=== PATIENT | female | born 1995 | race Caucasian/White ===

== ENCOUNTER 2019-01-16 10:19 | Outpatient (CLI) | payer OTHER ==
[~2019-01-16] VITALS: Ht 175.3 cm; Wt 136.0 kg
[2019-01-16] MEDS ORDERED: STUACAP PO (10:39)
[2019-01-16] MEDS ORDERED: MAPA500T2 PO (10:39)
[2019-01-16] MEDS ORDERED: ASPI81TA21 PO (10:40)
[2019-01-16] MEDS ORDERED: GNP250TA9 PO (10:41)
[2019-01-16 10:49] VITALS: BP 135/84
[2019-01-16] MEDS ORDERED: FIORICET TAB PO ONE (11:00)
[2019-01-16 11:07] VITALS: BP 122/67
--- NOTE | 2019-01-16 12:18 | IPNPDOC ---
Obstetrical Progress Note Date of Service Jan 16, 2019 Subjective 23yo at 34wks presents to clinic for c/o persistent COPE; Pt denies any other s/sx of Pre-E, including RUQ pain or visual disturbances. She reports +FM, denies LOF/VB/CTX. Pt states COPE is consistently a 5/10, in the alevism areas and behind her eyes. She was seen in the clinic on [id number] and started on magnesium therapy. Last night she took 1g of tylenol and 800mg of magnesium and COPE is still persistent. Pt's most recent Pre-E labs from are + for proteinuria (>350 in 24hr protein). These results were reviewed with pt yesterday in the clinic. Her is complicated by obesity, BMI 39 pre-. She is set up to start weekly APFTs next week, the 2x week starting at 36 weeks. Her repeat growth scan is scheduled for 36 week. Objective O: BP normotensive FHR 150s, moderate variability, + accels, no decels no CTX noted Pt provided 1x fioricet Vital Signs Date Time Temp Pulse Resp B/P (MAP) Pulse Ox O2 Delivery O2 Flow Rate FiO2 01/16/19 11:07 86 122/67 (85) 01/16/19 11:03 18 Assessment Heart Rate (FHR): 150 Variability: Moderate Accelerations: Positive Decelerations: None Heart Rate Tracing: Category I Tocometer Contractions: No Assessment and Plan Status: Reassuring Additional Comments A: 23yo at 34 weeks with persistent COPE of 5/10, most likely a migraine. Pt provided 1x fioricet and was able to rest with lights out; after 30 minutes, pain reduced to 2/10. 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
== END 2019-01-16 11:37 | disposition home or self-care (01) ==
LOC: M LDO 10:19
PROVIDERS: ATTEND Registered Nurse Maternal Newborn
DX: O99.89 Other specified diseases and conditions complicating pregnancy, childbirth and the puerperium (principal); Z3A.34 34 weeks gestation of pregnancy; R51 Headache
CPT/HCPCS: 59025; G0378; G0463

== ENCOUNTER 2019-02-20 10:03 | Inpatient (IN) | payer OTHER ==
[2019-02-20] VITALS (10 sets, daily range): BP systolic 118–144; BP diastolic 56–82
[~2019-02-20] VITALS: Ht 175.3 cm; Wt 142.3 kg
[~2019-02-20 10:03] MED LIST: ASPI81TA21 PO; GNP250TA9 PO; MAPA500T2 PO; STUACAP PO
[2019-02-20] MEDS: LR 1,000 ML IV SCH ×2 (10:24→18:24)
[2019-02-20] MEDS ORDERED: LACTATED RINGER'S 1000 ML IV STA ×2 (10:24→16:54)
[2019-02-20 11:22] LABS: HEMATOCRIT 34.3 % (36.0-47.0); HEMOGLOBIN 11.3 g/dl (12.0-15.5); MEAN CORPUSCULAR HEMOGLOBIN 29.4 pg (27.0-33.0); MEAN CORPUSCULAR HGB CONC 32.9 g/dl (32.0-36.5); MEAN CORPUSCULAR VOLUME 89.3 fl (80.0-96.0); PLATELET COUNT, AUTOMATED 217 10^3/uL (150-450); RED BLOOD COUNT 3.84 10^6/uL (4.00-5.40); WHITE BLOOD COUNT 8.2 10^3/uL (4.0-10.0)
[2019-02-20 11:39] LABS: CREATININE,RANDOM URINE 33.1 MG/DL; TOTAL PROTEIN,RANDOM URINE 34.2 MG/DL (0.0-12.0)
[2019-02-20 12:01] LABS: ALT/SGPT 14 U/L (12-78); BILIRUBIN,TOTAL 0.3 MG/DL (0.2-1.0); CREATININE FOR GFR 0.74 MG/DL (0.55-1.30); GLOMERULAR FILTRATION RATE > 60.0 (>60); LDH LACTATE DEHYDROGENASE 241 U/L (84-246); URIC ACID 4.9 MG/DL (2.6-6.0)
[2019-02-20] MEDS ORDERED: LR 1,000 ML IV SCH (16:54)
--- NOTE | 2019-02-20 17:27 | HPEPDOC ---
Obstetrical History & Physical General Date of Admission Feb 20, 2019 at 10:03 Primary Care Physician: La Padilla MD History of Present Illness OB considerations: Pre-eclampsia without SF Obesity, excessive wt gain 44 lbs Childhood asthma 23y/o G1 @ 39+0 wks admitted for IOL for pre-eclampsia without SF. Denies COPE/Visual changes/RUQ pain. Serum labs within normal limits. Spot urine 1. No contractions, LOF, vaginal bleeding. Patient reports active movement. 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 Past Medical History Medical History Childhood asthma Surgical History: [place] teeth Family History Significant Family History: No pertinent family hx Social History Marital Status: Family situation: Spouse/partner home Psychosocial History: No pertinent psych hx * Smoker: non-smoker Alcohol: Denies Drugs: denies Abuse Violence Screening Have you been hit/kicked/slapp: No Have you been sexually assault: No Imunizations Tdap status: needs Influenza Status: needs Allergies Coded Allergies: No Known Allergies (Unverified , 01/16/19) NKA Medications Scheduled Aspirin (Aspir-Low) 81 Mg Tablet.dr, 1 TAB PO DAILY for pain with food Magnesium Oxide (Magnesium) 250 Mg Tablet, 1 TAB PO DAILY Miscellaneous Medications Acetaminophen (Mapap) 500 Mg Tablet, 1,000 MG PO Pnv No.63/Iron,Carb/Folic/Dha (Ranjit One Capsule) 1 Each Capsule, 1 CAP PO Physical Examination Physical Examination GENERAL: Alert and oriented times three. BREAST: . ABDOMEN: Gravid and non-tender to touch. FETUS: Is vertex (VTX) by sterile vaginal examination (SVE), fetus is vertex (VTX) by Chong. Vertex by TAUS. EFW: 3600g HEART RATE: Regular rate and rhythm. LUNGS: Clear to auscultation (CTA). EXTREMITIES: No edema. No clonus. Deep tendon reflexes (DTRs) + 1. Laboratory Data 24H LABS Laboratory Tests 2 02/20/19 10:11: Serology Scanned Report Hepatitis B Testing 02/20/19 11:00: Nucleated Red Blood Cells % (auto) 0.0, Urine Random Creatinine 33.1, Urine Random Total Protein 34.2H, Glomerular Filtration Rate > 60.0, Uric Acid 4.9, T otal Bilirubin 0.3, Aspartate Amino Transf (AST/SGOT) 14, Alanine Aminotransferase (ALT/SGPT) 14, Lactate Dehydrogenase 241, Syphilis Serology NONREACTIVE CBC/BMP Laboratory Tests 02/20/19 11:00 Pertinent Laboratoy Data Blood Type: A+ RBC Antibody Screen: Negative HIV: Negative Hepatitis B: Negative Hepatitis C: Declined Rapid Plasma Reagin: Nonreactive Rubella: Immune Varicella: Positive Chlamydia/Gonorrhea: Negative Group B Streptococcus: Negative Cystic Fibrosis: Unknown Glucose Tolerance Test: 171 Anatomy Ultrasound Ultrasound Date: Dec 09, 2018 Placenta Location: Posterior Normal Anatomy: Yes Placenta Previa: No Estimated Weight (grams): 1318 Steroid Therapy Steroid Therapy: No Vaginal Examination Dilation: 3 cm Effacement: 70% Station: -2 Cervical Consistency: Soft Cervical Position: Posterior Presentation: Cephalic presentation Position: Vertex (occiput) Assessment Heart Rate (FHR): 135 Variability: Moderate Accelerations: Positive Decelerations: None Tocometer Contractions: No Multi-drug resistant Organism: No history of MDRO Assessment/Plan Assessment 23y/o G1 @ 39+0 wks admitted for IOL for pre-eclampsia without SF. EFW 3600g. GBS negative. Plan Admit and orient. Senior Systems Administrator and consent. Diet: Regular x1, then clear liquids. Group B Streptococcus (GBS) negative. Labs and intravenous (IV) per unit protocol. Counseled on Pitocin and induction of labor (IOL). Lactated Ringers (LR): Bolus 1000 mL, then at 125 mL/hr. Anticipate normal spontaneous delivery (). C-S as appropriate. Labor and Delivery Counseling Discussed with patient procedures on labor and delivery to include external and internal monitoring of contractions and FHR. Discussed medications for inducti on of labor and medications for pain. Risks of labor and delivery include infections, which would be treated with antibiotics, need for episiotomy or tearing of the vaginal opening which will be repaired with absorbable sutures. Risks of bleeding to include need for blood transfusion with subsequent risks of bloodborne infection (Hepatitis/HIV) or transfusion reaction. Other procedures may be needed for distress such as forceps, vacuum or emergency . Other risks include injury to baby or additional procedures following delivery. La Padilla MD Feb 20, 2019 17:27
[2019-02-20] MEDS ORDERED: OXYTOCIN DRIP 30 UNITS in IV 1 EA IV SCH (19:00)
[2019-02-20] MEDS ORDERED: ACETAMINOPHEN 500 MG TAB PO ONE (21:45)
[2019-02-21] VITALS (40 sets, daily range): BP systolic 100–135; BP diastolic 52–84
--- NOTE | 2019-02-21 05:10 | IPNPDOC ---
Text Note Date of Service The patient was seen on 02/21/19. NOTE OB considerations: Pre-eclampsia without SF Obesity, excessive wt gain 44 lbs Childhood asthma 23y/o G1 @ 39+1 wks admitted for IOL for pre-eclampsia without SF. Mostly normot ensive to rare mild range. NST: 130, mod anay, +accels, few questionable decelerations unable to dash racterize due to difficulty tracing contractions TOCO: unable to fiber picker contractions Admit DCE: 350/-2, posterior 0510: 350/-2 posterior Pit @ 14 A/p: 23y/o G1 @39+1 undergoing IOL for pre-eclampsia without SF -continuous monitoring -Continue Pitocin per protocol -GBS negative: no prophylaxis indicated -Repeat DCE 6 hours or sooner PRN VS,Fishbone, I+O VS, Fishbone, I+O Laboratory Tests 02/20/19 11:00 Vital Signs Date Time Temp Pulse Resp B/P (MAP) Pulse Ox O2 Delivery O2 Flow Rate FiO2 02/21/19 04:00 85 117/60 (79) 02/21/19 03:30 97.3 I&O- Last 24 Hours up to 6 AM 02/21/19 06:00 Intake Total 450 ml Balance 450 ml La Padilla MD Feb 21, 2019 05:10
[2019-02-21] MEDS: LR 1,000 ML IV SCH (08:36)
--- NOTE | 2019-02-21 10:12 | IPNPDOC ---
Obstetrical Progress Note Date of Service Feb 21, 2019 Subjective Assumed care of 23yo at 39+1wks undergoing IOL for Pre-e without severe features. A Positive, GBS Negative. Pitocin started last night at 1845. Pt reports feeling crampy, but otherwise has no concerns at this time. Objective O: VSS, BPs WNL VE: 3/50/-3 (unchanged from previous exam) FHR 135, moderate variability, + accels, no decels present CTX: none on TOCO and none palpated Vital Signs Date Time Temp Pulse Resp B/P (MAP) Pulse Ox O2 Delivery O2 Flow Rate FiO2 02/21/19 07:00 75 119/63 (81) 02/21/19 05:00 97.6 Sterile Vaginal Examination Cervical Consistency: Medium Cervical Position: Posterior Postion/Presentation: Cephalic presentation Assessment and Plan Status: Reassuring Group B Streptococcus: Negative Anticipate: Vaginal Delivery Additional Comments A: 23yo undergoing IOL for Pre-E (BPs remain WNL today); Pitocin running at 18mu/min, not in labor and no cervical change P: Stop pitocin Will start Cytotec 50mcg PO EFM per policy Allow pt to eat and shower Reassess 4 hours after cytotec administration or sooner PRN Consult with OB as indicated Anticipate DILCIA SIGALA CNM Feb 21, 2019 10:12
[2019-02-21] MEDS ORDERED: miSOPROStol 50 MCG 1/2 TAB (S0191) PO ONE ×2 (10:15→15:30)
[2019-02-21] MEDS: CALCIUM CARBONATE 500 MG CHEW U/D PO PRN ×2 (17:03→23:00)
--- NOTE | 2019-02-21 19:29 | IPNPDOC ---
Obstetrical Progress Note Date of Service Feb 21, 2019 Subjective 23yo at 39+1wks, IOL for Pre-E (w/o severe features), now s/p 2nd dose of Cytotec 50mcg PO. Pt has been able to shower, eat, and walk around. She remains asymptomatic and BPs have been WNL. Objective O: VSS, BP normotensive VE: 3/60/-2, posterior, consistency now softer, minimal change CTX: present, difficult to palpate d/t body habitus; q3-4 minutes on TOCO FHR 140s, moderate variability, + accels, no decels Vital Signs Date Time Temp Pulse Resp B/P (MAP) Pulse Ox O2 Delivery O2 Flow Rate FiO2 02/21/19 14:34 106 104/58 (73) 02/21/19 07:42 98.7 18 Room Air Assessment Heart Rate Tracing: Category I Tocometer Contractions: Yes Frequency: regular Sterile Vaginal Examination Cervical Consistency: Medium Cervical Position: Posterior Postion/Presentation: Cephalic presentation Assessment and Plan Status: Reassuring Group B Streptococcus: Negative Anticipate: Vaginal Delivery Additional Comments A: 23yo at 39+1wks, undergoing IOL for Pre-E (asymptomatic and BPs normotensive), not in labor; Category I FHT P: CEFM x2 Restart Pitocin per low dose protocol Close monitoring of BPs PO and IV hydration Reassess in 4-6 hours or sooner PRN Report provided to DILCIA Coto CNM Feb 21, 2019 19:29
[2019-02-22] VITALS (66 sets, daily range): BP systolic 87–151; BP diastolic 47–92
[2019-02-22] MEDS ORDERED: NALBUPHINE HCL 10 MG/ML AMP (J2300) IV ONE (04:30)
[2019-02-22] MEDS ORDERED: PROMETHAZINE INJ 25 MG/ML VIAL (J2550) IV ONE (04:30)
[2019-02-22] MEDS ORDERED: NALBUPHINE HCL 10 MG/ML AMP (J2300) IM ONE (04:30)
--- NOTE | 2019-02-22 04:33 | IPNPDOC ---
Text Note Date of Service The patient was seen on 02/22/19. NOTE patient is a 23yo at 39+2wks, IOL for Pre-E (w/o severe features), induction started with pit followed by Cytotec 50mcg PO x 2. She was checked by prior provider to be at 3cm earlier yesterday. She is currently on 10mU/pit with regular contractions. vitals: normal laying in bed fht: 140/mod anay/pos accel/no decel toco: ctx q 3mins ce: /-4, medium, posterior a/p patient in latent labor, hartmann bulb placed in cervix (80cc fluids placed cervical side), continue with pit for now. pain meds as needed. recheck once bulb comes out. Kita, VS,Fishbone, I+O VS, Fishbone, I+O Vital Signs Date Time Temp Pulse Resp B/P (MAP) Pulse Ox O2 Delivery O2 Flow Rate FiO2 02/22/19 03:49 91 120/58 (78) 02/21/19 07:42 98.7 18 Room Air I&O- Last 24 Hours up to 6 AM 02/22/19 05:59 Intake Total 1150 ml Balance 1150 ml YANETH MCGHEE DO Feb 22, 2019 04:32
--- NOTE | 2019-02-22 08:05 | IPNPDOC ---
Text Note Date of Service The patient was seen on 02/22/19. NOTE patient is a 23yo at 39+2wks, IOL for Pre-E (w/o severe features), induction started with pit followed by Cytotec 50mcg PO x 2. Chavez bulb came out 2 hrs after placement. patient having mild contractions at this time. vitals: normal laying in bed fht: 140/mod anay/pos accel/no decel toco: ctx q 3mins ce: 3-4/50/-3, AROM clear a/p patient in latent labor, AROM. continue to titrate pit to effect. recheck in 6hrs. sooner as needed. Le, DO VS,Fishbone, I+O VS, Fishbone, I+O Vital Signs Date Time Temp Pulse Resp B/P (MAP) Pulse Ox O2 Delivery O2 Flow Rate FiO2 02/22/19 06:48 98.1 60 111/63 (79) 02/21/19 07:42 18 Room Air I&O- Last 24 Hours up to 6 AM 02/22/19 05:59 Intake Total 1150 ml Balance 1150 ml YANETH MCGHEE DO Feb 22, 2019 08:05
[2019-02-22] MEDS ORDERED: FENTANYL 2MCG/ML ROPIVACAINE 0.2% IN 0.9% NACL 100ML IVBAG As Ordered ONE (08:36)
[2019-02-22 09:06] LABS: HEMATOCRIT 34.7 % (36.0-47.0); HEMOGLOBIN 11.2 g/dl (12.0-15.5); MEAN CORPUSCULAR HEMOGLOBIN 29.1 pg (27.0-33.0); MEAN CORPUSCULAR HGB CONC 32.3 g/dl (32.0-36.5); MEAN CORPUSCULAR VOLUME 90.1 fl (80.0-96.0); PLATELET COUNT, AUTOMATED 220 10^3/uL (150-450); RED BLOOD COUNT 3.85 10^6/uL (4.00-5.40); WHITE BLOOD COUNT 9.7 10^3/uL (4.0-10.0)
[2019-02-22] MEDS: FENTANYL/ROPIVACAINE/NACL BAG 100 ML EPIDURAL SCH ×2 (10:00→17:59)
--- NOTE | 2019-02-22 10:42 | IPNPDOC ---
Text Note Date of Service The patient was seen on 02/22/19. NOTE patient comfortable with epidural. fht: 140/mod anay/pos accel/no decel. toco: difficult to trace contraction pit at 12mU CE: 4-5/75/-3 a/p patient in latent labor. IUPC and FSE placed for better monitoring of contraction as well as FHT. continue to titrate pit to effect. recheck in 4- 6hrs. DO Kita VS,Demetrius, I+O VS, Samanthae, I+O Laboratory Tests 02/22/19 08:55 Vital Signs Date Time Temp Pulse Resp B/P (MAP) Pulse Ox O2 Delivery O2 Flow Rate FiO2 02/22/19 08:22 82 128/75 (92) 02/22/19 06:48 98.1 02/21/19 07:42 18 Room Air I&O- Last 24 Hours up to 6 AM 02/22/19 05:59 Intake Total 1150 ml Balance 1150 ml YANETH MCGHEE DO Feb 22, 2019 10:42
[2019-02-22] MEDS ORDERED: ONDANSETRON 4MG/2ML VIAL (J2405) IV PRN (11:00)
[2019-02-22] MEDS ORDERED: EPIDURAL/PCA KEYS XX PRN (11:00)
[2019-02-22] MEDS ORDERED: ePHEDrine SULFATE 25 MG/5 ML(5MG/ML) SYRINGE IV PRN (11:00)
[2019-02-22] MEDS ORDERED: NALOXONE INJ 0.4 MG/1 ML VIAL (J2310) IV PRN (11:00)
[2019-02-22] MEDS ORDERED: EPIDURAL COMMENT XX SCH (11:00)
[2019-02-22] MEDS ORDERED: REFRIGERATOR IV KEYS XX PRN (11:00)
[2019-02-22] MEDS ORDERED: LACTATED RINGER'S 1000 ML IV PRN (11:00)
[2019-02-22] MEDS ORDERED: diphenhydrAMINE INJ 50MG/ML VIAL (J1200) IV PRN (11:00)
[2019-02-22] MEDS: LR 1,000 ML IV SCH (15:05)
[2019-02-22] MEDS ORDERED: OXYTOCIN DRIP 30 UNITS in IV 1 EA IV SCH ×2 (16:45→22:45)
--- NOTE | 2019-02-22 18:00 | IPNPDOC ---
Text Note Date of Service The patient was seen on 02/22/19. NOTE Patient feeling intermittent pressure. pit: 24 fht: 140/mod anay/pos accel/no decel IUPC: 180MVU. CE: / a/p patient in active labor. continue to titrate pit to effect. recheck in 2hrs. DO Kita VS,Fishbone, I+O VS, Fishbone, I+O Laboratory Tests 02/22/19 08:55 Vital Signs Date Time Temp Pulse Resp B/P (MAP) Pulse Ox O2 Delivery O2 Flow Rate FiO2 02/22/19 15:19 91 129/67 (87) 02/22/19 06:48 98.1 02/21/19 07:42 18 Room Air I&O- Last 24 Hours up to 6 AM 02/22/19 05:59 Intake Total 1150 ml Balance 1150 ml YANETH MCGHEE DO Feb 22, 2019 18:00
--- NOTE | 2019-02-22 21:08 | IPNPDOC ---
Text Note Date of Service The patient was seen on 02/22/19 @1999 NOTE patient feeling constant pressure. pit: 24mU/min vitals: normal fht: 140/mod anay/+ accel/no decel IUPC: ~160-180MVU CE: anterior lip/c/+1 a/p patient in active labor. continue to titrate pit. recheck in 1 hr. DO Kita VS,Fishbone, I+O VS, Fishbone, I+O Laboratory Tests 02/22/19 08:55 Vital Signs Date Time Temp Pulse Resp B/P (MAP) Pulse Ox O2 Delivery O2 Flow Rate FiO2 02/22/19 17:59 99 115/59 (77) 02/22/19 17:58 98.8 22 02/21/19 07:42 Room Air I&O- Last 24 Hours up to 6 AM 02/22/19 06:00 Intake Total 1150 ml Balance 1150 ml YANETH MCGHEE DO Feb 22, 2019 21:08
--- NOTE | 2019-02-22 21:10 | IPNPDOC ---
Text Note Date of Service The patient was seen on 02/22/19. NOTE patient continues to feel pressure. pit: 24mU/min fht: 140/mod anay/pos accel/no decel IUPC: 160-180MVU ce: anterior lip/c/+2, cervix reduced with pushing. a/p patient in second stage of labor after cervix reduced. Cervix remains at c/c/+1 with subsequent contractions. start pushing. DO Kita VS,Demetrius, I+O VS, Fishbone, I+O Laboratory Tests 02/22/19 08:55 Vital Signs Date Time Temp Pulse Resp B/P (MAP) Pulse Ox O2 Delivery O2 Flow Rate FiO2 02/22/19 17:59 99 115/59 (77) 02/22/19 17:58 98.8 22 02/21/19 07:42 Room Air I&O- Last 24 Hours up to 6 AM 02/22/19 06:00 Intake Total 1150 ml Balance 1150 ml YANETH MCGHEE DO Feb 22, 2019 21:10
[2019-02-22] MEDS ORDERED: DOCUSATE SODIUM 100 MG CAP PO PRN (22:45)
[2019-02-22] MEDS ORDERED: MEASLES,MUMPS,RUBELLA VACCINE INJ (MMR-II) (90707) SC SCH (22:45)
[2019-02-22] MEDS ORDERED: miSOPROStol 200 MCG TAB (S0191) PR ONE (22:45)
[2019-02-22] MEDS ORDERED: DIBUCAINE 1% OINTMENT 30GM TOP PRN (22:45)
[2019-02-22] MEDS ORDERED: METHYLERGONOVINE MALEATE 0.2 MG/ML VIAL (J2210) IM ONE (22:45)
[2019-02-22] MEDS ORDERED: RHOGAM 300 MCG (1500 IU) INJ (J2790) IM SCH (22:45)
--- NOTE | 2019-02-22 23:11 | DNPDOC ---
[facility] Delivery Note Delivery Note DATE OF DELIVERY: 22Feb2019 PREDELIVERY DIAGNOSIS: 39+2/7 weeks' gestation. pre-eclampsia without severe feature POST DELIVERY DIAGNOSIS: pre-eclampsia without severe feature PROCEDURE: Spontaneous vaginal delivery. RESTAURANT FLOOR MANAGER: Dr. dakota elizabeth DO ANESTHESIA: epidural ESTIMATED BLOOD LOSS: 500cc FINDINGS: 8 pound 5 ounce female infant, Score 9/9. DELIVERY SUMMARY: With good maternal effort, baby delivered OA, restituted LOT. Anterior shoulder delivered followed by posterior shoulder, body followed with ease. baby placed on maternal abdomen. Cord allowed to stop pulsating. cord clamped x 2 and cut by FOB. pitocin bolus started. Placenta delivered spontaneously. Fundus massaged firm. While waiting for placenta to delivery, midline first degree laceration repaired with figure of eight suture using 2-O vicryl. Patient continues to have gushes of bleeding from lower uterine segment. Cytotec 1000mcg placed rectally. Methergine 0.2mcg given IM. (Noted patient's blood pressure has been in the normal range through out the day.) Bleeding subsided. baby and mother bonding when I left the room. DO LITZY elizabeth LUAT N. DO Feb 22, 2019 23:11
[2019-02-23] MEDS: IBUPROFEN 800 MG TAB PO PRN ×3 (00:36→22:05)
[2019-02-23 00:50] VITALS: BP 143/84
[2019-02-23] MEDS ORDERED: LIDOCAINE 1% MDV 20ML VIAL As Ordered ONE (03:33)
[2019-02-23 05:00] VITALS: BP 130/73
--- NOTE | 2019-02-23 07:36 | IPNPDOC ---
Progress Note Date of Service: Feb 23, 2019 Day#: 1 Progress Note SUBJECT: Patient is a 23 yo s/p ppd #1. Patient was induced for pre-eclampsia without severe feature. Today without concerns. She has been ambulating, voiding spontaneously without issue and tolerating regular diet. Plans on breast feeding. Plans on mirena IUD for contraceptive. OBJECTIVE: VITAL SIGNS: Within normal limits, afebrile. Alert and oriented times three. Abdomen: Fundus firm at U-1. Soft, NTTP. LE: +edema, no erythema/tenderness A/P ppd #1, doing well. encourage bf. discussed contraceptive management. routine ppc. anticipated d/c home after ppd #2. Le, DO VS, I&O, 24H, Fishbone Vital Signs/I&O Vital Signs Date Time Temp Pulse Resp B/P (MAP) Pulse Ox O2 Delivery O2 Flow Rate FiO2 02/23/19 05:00 98.0 94 18 130/73 (92) Room Air I&O- Last 24 Hours up to 6 AM 02/23/19 06:00 Intake Total 7124 ml Output Total 1850 ml Balance 5274 ml Laboratory Data 24H LABS Laboratory Tests 2 02/22/19 08:55: Nucleated Red Blood Cells % (auto) 0.0 CBC/BMP Laboratory Tests 02/22/19 08:55 YANETH MCGHEE DO Feb 23, 2019 07:36
[2019-02-23] MEDS ORDERED: INFLUENZA QUADRIVALENT PF VACCINE 0.5ML SYRINGE (90686) IM ONE (09:00)
[2019-02-23] MEDS: PRENATAL VITAMINS CHEWABLE TABLET PO SCH (12:17)
[2019-02-23] MEDS ORDERED: miSOPROStol 200 MCG TAB (S0191) As Ordered ONE ×2 (13:50→13:51)
[2019-02-23 18:00] VITALS: BP 127/72
[2019-02-24 05:40] VITALS: BP 117/68
[2019-02-24] MEDS ORDERED: DIBU10OI TOP (07:41)
[2019-02-24] MEDS ORDERED: PRENCHW PO (07:41)
[2019-02-24] MEDS ORDERED: DOCU100C16 PO (07:41)
[2019-02-24] MEDS ORDERED: IBUP80TA PO (07:41)
[2019-02-24] MEDS ORDERED: INFLUENZA QUADRIVALENT PF VACCINE 0.5ML SYRINGE (90686) IM ONE (10:00)
[2019-02-24] MEDS: PRENATAL VITAMINS CHEWABLE TABLET PO SCH (10:39)
--- NOTE | 2019-02-24 10:57 | DSES ---
DATE OF ADMISSION: 02/20/2019 DATE OF DISCHARGE: 02/24/2019 Ms. David is a 23-year-old 1, now para 1-0-0-1. RPR nonreactive. She is A positive blood type and Rubella immune. Ms. David was admitted for induction of labor for preeclampsia without severe features. She had Cytotec, pitocin and Chavez bulb and progressed to have a spontaneous vaginal delivery at 39 and 2 weeks on 02/22/2019. Her delivery was uncomplicated with an estimated blood loss of 500 mL. She delivered a female weighing 8 pounds 5 ounces with scores of 9 and 9. She had epidural anesthesia and no episiotomy was made. The patient had an uncomplicated course. Her blood pressures remained mild range to normotensive. On the day of discharge, she denied headaches, visual changes, right upper quadrant pain. She was ambulating without difficulty, tolerating regular diet, voiding without difficulty, and ambulating without lightheadedness. Her lochia was diminishing. She was breast feeding and desired Mirena IUD for contraception at 6 weeks. ADMISSION DIAGNOSIS: Preeclampsia without severe features. DISCHARGE DIAGNOSIS: Single live . CONDITION AT DISCHARGE: Improved. She is to be discharged home. Her activity is as tolerated with pelvic rest for 6 weeks. Her medications are at [facility]. Her diet is regular. She is to return to [facility] in 2 days for a blood pressure check and at 6 weeks for visit. The patient was given return precautions and all questions were answered to her apparent satisfaction. edited: 02/25/2019 0741 tkf MTDD
[2019-02-24] MEDS: IBUPROFEN 800 MG TAB PO PRN (12:22)
== END 2019-02-24 12:35 | disposition home or self-care (01) | DRG 998 ==
LOC: M LDI 10:03 → M OBS 02-23 00:45
PROVIDERS: ADMIT Obstetrics & Gynecology; ATTEND Obstetrics & Gynecology
PROC: 3E033VJ Introduction of Other Hormone into Peripheral Vein, Percutaneous Approach (ICD-10-PCS; 2019-02-20)
PROC: 10E0XZZ Delivery of Products of Conception, External Approach (ICD-10-PCS; principal; 2019-02-22)
PROC: 0HQ9XZZ Repair Perineum Skin, External Approach (ICD-10-PCS; 2019-02-22)
DX: O14.94 Unspecified pre-eclampsia, complicating childbirth (principal); Z3A.34 34 weeks gestation of pregnancy; E66.9 Obesity, unspecified; O99.214 Obesity complicating childbirth; O70.0 First degree perineal laceration during delivery

== ENCOUNTER → 2020-09-06 | Outpatient (CLI) | payer OTHER ==
[~2020-09-06] MED LIST changes: +DIBU28OI2 TOP; +DOCU100C16 PO; +IBUP80TA PO; +PRENCHW PO
--- NOTE | 2020-09-07 13:18 | ECHO ---
DATE OF PROCEDURE: 09/06/2020 Age: 24 Gender: Female Height: 175 cm Weight: 141 kg REFERRING PHYSICIAN: Danilo Gallegos M.D. INDICATION: Heart murmur. MEASUREMENTS: IVS 1.1 cm LV 4.5 cm LVPW 1.1 cm LA 3.6 cm Aorta 2.9 cm IVC 1.2 cm Mitral E wave velocity 66 cm/s Mitral A wave 72 cm/s E prime septal 7.2 cm/s E prime lateral 14.2 cm/s FINDINGS: This study is of acceptable technical quality, especially considering the patients body habitus. Underlying sinus rhythm. Normal LV size with normal LV systolic function, estimated LVEF 60% to 65%. Normal RV size and systolic function. Both atria appear normal. All four cardiac valves are reasonably well seen and appear normal. No pericardial effusion is noted. Inferior vena cava is normal size and appropriately collapses with inspiration indicative of normal central venous pressure. The aortic root and aortic arch appear normal. Abdominal aorta was not well seen. Doppler interrogation reveals all four cardiac valves to be functionally competent without significant stenosis or insufficiency. Mitral inflow pattern and tissue Doppler imaging of the mitral annulus revealed grade 1 diastolic dysfunction. CONCLUSIONS: 1. Study is of acceptable technical quality, underlying sinus rhythm with narrow QRS complex. 2. Normal LV size with normal LV systolic function and grade 1 diastolic dysfunction. 3. No significant valvular disease. 4. Normal central venous pressure. 5. Unable to estimate pulmonary artery pressure, but no signs to suggest pulmonary hypertension. MTDD
== END ==
LOC: M CARPUL 08:25
PROVIDERS: ATTEND Internal Medicine Cardiovascular Disease
DX: R01.1 Cardiac murmur, unspecified (principal)